=== PATIENT | female | born 1995 | race African-American/Black ===

== ENCOUNTER 2025-01-15 14:18 | Emergency (ER) | payer OTHER ==
[2025-01-15 14:23] VITALS: RESP 18; BMI 30.2
[2025-01-15] MEDS ORDERED: FAMOTIDINE 20 MG/50 ML IVPB 20 MG/50 ML MG IVPB ONE (15:33)
[2025-01-15 15:43] LABS: ABSOLUTE IMMATURE GRANULOCYTES 0.04 x10^3/uL (0.0-0.031); BASOPHILS # 0.02 x10^3/uL (0.01-0.08); EOSINOPHIL % 0.8 % (0.7-5.8); EOSINOPHILS # 0.08 x10^3/uL (0.04-0.36); MCHC 33.1 g/dl (32.2-35.5); MEAN CELL VOLUME 91.4 fl (79.4-94.8); MEAN PLT VOLUME 9.2 fl (9.4-12.3); MONOCYTE # 0.54 x10^3/uL (0.24-0.86); MONOCYTE % 5.7 % (4.7-12.5); RDW 14.6 % (12.1-16.5)
[2025-01-15] MEDS: SODIUM CHLORIDE 0.9% 500 ML INFUS.BAG IV ONE (15:43)
[2025-01-15] MEDS: FAMOTIDINE 20 MG/50 ML IVPB 20 MG/50 ML MG IVPB ONE (15:43)
[2025-01-15 16:32] LABS: CO2 26 mmol/L (21-32); GLUCOSE,RANDOM 86 mg/dL (74-106)
[2025-01-15 16:35] LABS: CREATININE 0.5 mg/dL (0.55-1.3); SGOT/AST 18 U/L (15-37); SGPT/ALT 25 U/L (13-61)
[2025-01-15 16:36] LABS: TOT PROT 7.9 g/dl (6.4-8.2)
[2025-01-15 16:38] LABS: ALK PHOS 62 U/L (45-117)
[2025-01-15 17:08] LABS: EPI CELLS >36 /uL (0-25.1); HYALINE CASTS 2 /uL (0-3.1); URINE APPEARANCE CLOUDY; URINE BACTERIA 1263 /uL (0-1359); URINE BILIRUBIN NEGATIVE (NEGATIVE); URINE COLOR YELLOW; URINE GLUCOSE (UA) NEGATIVE (NEGATIVE); URINE KETONE 1+ (NEGATIVE); URINE LEUK ESTERASE 2+ (NEGATIVE); URINE NITRITE NEGATIVE (NEGATIVE); URINE PROTEIN TRACE (NEGATIVE); URINE RBC 29 /uL (0-23.9); URINE UROBILINOGEN 1.0 mg/dL (0.2-1.0); URINE WBC 94 /uL (0-25.8)
[2025-01-15 18:48] VITALS: BP 112/66; PULSE 79; TEMP 98.5
[2025-01-15 23:52] LABS: HIV INTERPRETATION NEGATIVE (NEGATIVE)
[2025-01-16 20:47] LABS: HCV DIAGNOSTIC IN-HOUSE W/RFLX NON-REACTIVE (NONREACTIVE)
== END 2025-01-15 20:47 | disposition home or self-care (01) ==
LOC: JER 14:18
PROC: 3E033GC Introduction of Other Therapeutic Substance into Peripheral Vein, Percutaneous Approach (ICD-10-PCS; principal; 2025-01-15)
DX: O26.892 Other specified pregnancy related conditions, second trimester (principal); R10.31 Right lower quadrant pain; R10.32 Left lower quadrant pain; O23.92 Unspecified genitourinary tract infection in pregnancy, second trimester; O21.9 Vomiting of pregnancy, unspecified; O99.612 Diseases of the digestive system complicating pregnancy, second trimester; K21.9 Gastro-esophageal reflux disease without esophagitis; Z3A.17 17 weeks gestation of pregnancy
CPT/HCPCS: 36415; 76815-TC; 80053; 81003; 83690; 84702; 85025; 86803; 87086; 87389; 99285-25